=== PATIENT | female | born 1955 | race Caucasian/White ===

== ENCOUNTER 2018-11-07 22:29 | Inpatient (IN) | payer OTHER ==
[~2018-11-07] VITALS: Ht 167.6 cm; Wt 53.2 kg
[2018-11-07 23:00] LABS: Basophils # (auto) 0 uL; Eosinophils # (auto) 0.1 uL; Hemoglobin 12.9 g/dL (12.2-16.2); Monocytes # (auto) 0.5 uL; Neutrophils # (auto) 2.2 uL; Nucleated Red Blood Cells % 0.1 %; White Blood Cell 4.5 10^3/uL (4.4-10.8)
[2018-11-07 23:02] LABS: Basophils % (auto) 0.5 % (0.0-2.0); Eosinophils % (auto) 1.4 % (0.0-7.0); Hematocrit 38.8 % (36.0-46.0); Lymphocytes # (auto) 1.8 uL; Lymphocytes % (auto) 39.3 % (10.0-50.0); Mean Corpuscular Hemoglobin 34.8 pg (28.0-32.0); Mean Corpuscular Hgb Conc. 33.1 g/dL (32.0-36.0); Mean Corpuscular Volume 105.1 fL (80.0-100.0); Monocytes % (auto) 10.4 % (0.0-12.0); Neutrophils % (auto) 48.4 % (37.0-80.0); Platelet Count (auto) 332 10^3/uL (140-450); Red Blood Cells 3.69 10^6/uL (4.0-5.20); Red Cell Distribution Width 15.6 % (11.8-14.3)
[2018-11-07 23:26] LABS: Alanine Aminotransferase 29 U/L (13-56); Albumin 2.9 g/dL (3.4-5.0); Anion Gap 16 (5-15); Aspartate Aminotransferase 45 U/L (15-37); BUN/Creatinine Ratio 6.8; Blood Alcohol < 3.0 mg/dL (0-5); Blood Urea Nitrogen 7 mg/dL (7-18); Calcium 8.5 mg/dL (8.5-10.1); Carbon Dioxide 21 mmol/L (21-32); Chloride 101 mmol/L (98-107); GFR African American 70 mL/min; GFR Non-African American 58 mL/min; Glucose 108 mg/dL (74-106); Sodium 138 mmol/L (136-145)
[2018-11-07] MEDS ORDERED: LORazepam 2MG/ML-1ML VIAL ONE (23:30)
[2018-11-07] MEDS ORDERED: diphenhdrAMINE HCL 50 MG/1 ML VL ONE (23:30)
[2018-11-07] MEDS ORDERED: HALOPERIDOL LACTATE 5 MG/ML INJ VIAL ONE (23:30)
[2018-11-07 23:31] LABS: Alkaline Phosphatase 83 U/L (45-117); Bilirubin, Total 0.2 mg/dL (0.2-1.0); Total Protein 6.9 g/dL (6.4-8.2)
[2018-11-07 23:40] LABS: Urine Bacteria NONE SEEN /hpf (None Seen); Urine Blood Negative /uL (Negative); Urine Specific Gravity 1.001 (1.001-1.035); Urine WBC <1 /hpf (0 - 5)
[2018-11-07 23:40] LABS: Potassium 2.6 mmol/L (3.5-5.1)
[2018-11-07 23:55] LABS: Amphetamine Screen, Urine NEGATIVE (NEGATIVE); Barbiturate Scree,Urine NEGATIVE (NEGATIVE); Benzodiazephine Screen, Urine NEGATIVE (NEGATIVE); Cannabinoid Screen, Urine POSITIVE (NEGATIVE); Cocaine Screen, Urine NEGATIVE (NEGATIVE); Opiate Scree,Urine NEGATIVE (NEGATIVE); Phencyclidine Screen, Urine NEGATIVE (NEGATIVE)
[2018-11-08] MEDS ORDERED: SODIUM CHLORIDE 0.9% 1,000 ML IV ONE (00:45)
[2018-11-08] MEDS: POTASSIUM CHL 20MEQ/100ML 100 ML IV SCH ×2 (01:02→03:27)
[2018-11-08] MEDS ORDERED: LORazepam 2MG/ML-1ML VIAL IV ONE (01:15)
[2018-11-08] MEDS ORDERED: diphenhdrAMINE HCL 50 MG/1 ML VL IV ONE (01:15)
[2018-11-08] MEDS ORDERED: HALOPERIDOL LACTATE 5 MG/ML INJ VIAL IM ONE (01:15)
[2018-11-08] MEDS ORDERED: POTASSIUM CHL 20MEQ/100ML 100 ML IV ONE (07:15)
[2018-11-08] MEDS ORDERED: MORPHINE SULFATE 4 MG/ML SYR/VIAL IV PRN (08:30)
[2018-11-08] MEDS ORDERED: NITROGLYCERIN 0.4 MG SL TAB SL PRN (08:30)
[2018-11-08] MEDS ORDERED: ACETAMINOPHEN 500 MG TAB PO PRN (08:30)
[2018-11-08] MEDS ORDERED: HYDROcodone-ACET 5/325MG TAB PO PRN (08:30)
[2018-11-08 09:28] LABS: Magnesium 2.3 mg/dL (1.6-2.6); Phosphorus 4.3 mg/dL (2.5-4.90)
[2018-11-08] MEDS: PANTOPRAZOLE 40 MG/10 ML VIAL IV SCH (10:00)
[2018-11-08] MEDS: MULTIPLE VITAMIN 10 ML, MAGNESIUM SULF SDV 50% 8 MEQ in D5W/SOD CHL 0.45% 1,000 ML IV SCH ×2 (10:45→12:00)
[2018-11-08] MEDS: LEVETIRACETAM INJ 1,000 MG in D5W 5% 100 ML IV SCH ×2 (10:50→21:46)
[2018-11-08 12:18] LABS: Magnesium 2.2 mg/dL (1.6-2.6); Potassium 3.6 mmol/L (3.5-5.1)
--- NOTE | 2018-11-08 17:20 | NUR ---
OPENING PATIENT ON THE FLOOR , WILL F/U WITH ASSESSMENT.
[2018-11-08] MEDS ORDERED: CYCL1TAB18 PO (18:05)
[2018-11-08] MEDS ORDERED: FOLI1TAB6 PO (18:05)
[2018-11-08] MEDS ORDERED: BACL10TA PO (18:05)
[2018-11-08] MEDS ORDERED: ALBUPOW25 XX (18:05)
[2018-11-08] MEDS ORDERED: OMEP20TA PO (18:05)
[2018-11-08] MEDS ORDERED: QUET100T46 PO (18:05)
[2018-11-08] MEDS: LORazepam 2MG/ML-1ML VIAL IV PRN (18:06)
--- NOTE | 2018-11-08 19:25 | NUR ---
Opening Shift Note Received report from Massiel KAUFFMAN. Assumed care of patient, awake and alert to self and only. In moderate distress/SOB and low back pain. Instructed on POC and to call for assist PRN. Fall precaution measures in place, will continue to monitor for changes Q1hr and PRN.
[2018-11-08 20:00] VITALS: BP 149/74
--- NOTE | 2018-11-08 21:25 | NUR ---
IV removal IV on R forearm infiltrated. IV DC'd with clean sterile technique, catheter fully intact. Pressure dressing applied to site. Patient tolerated well.
--- NOTE | 2018-11-08 21:30 | NUR ---
IV insertion IV access obtained, via clean sterile technique by inserting 20 gauge catheter at L forearm after 1 attempt(s). IV secured properly. No trauma to site. Patient tolerated well.
[2018-11-08 22:00] VITALS: BP 149/74
--- NOTE | 2018-11-08 22:20 | NUR ---
Ceballos catheter dc'd Patient is confused, trying to pull out the Ceballos. Keep going out of bed stating "I need to pee." Reorient patient that she has a Ceballos in placed to help her urinate, still patient doesn't want it. Charge nurse Penny at bedside. Ceballos dc'd with clean technique following deflation of balloon. Patient tolerated well with no complaints of pain. Continue care.
[2018-11-08] MEDS ORDERED: TEMAZEPAM 15 MG CAP PO ONE (23:15)
[2018-11-09] VITALS (7 sets, daily range): BP systolic 103–150; BP diastolic 58–81
[2018-11-09] MEDS: chlordiazePOXIDE HCL 25 MG CAP PO PRN (00:15)
[2018-11-09] MEDS: LORazepam 2MG/ML-1ML VIAL IV PRN (01:34)
--- NOTE | 2018-11-09 01:43 | NUR ---
Patient pulled out the ID band and trying to pull out the IV. Patient also frequently getting out of bed and does not use the call light. Sitter placed for safety.
[2018-11-09] MEDS: MORPHINE SULFATE 4 MG/ML SYR/VIAL IV PRN ×2 (03:48→22:31)
[2018-11-09 05:55] LABS: Basophils # (auto) 0 uL; Basophils % (auto) 0.5 % (0.0-2.0); Eosinophils # (auto) 0.1 uL; Lymphocytes # (auto) 1.4 uL; Monocytes # (auto) 0.6 uL; Platelet Count (auto) 244 10^3/uL (140-450); White Blood Cell 5.7 10^3/uL (4.4-10.8)
[2018-11-09 05:58] LABS: Eosinophils % (auto) 1.8 % (0.0-7.0); Hematocrit 32.5 % (36.0-46.0); Lymphocytes % (auto) 24.8 % (10.0-50.0); Mean Corpuscular Hemoglobin 35.3 pg (28.0-32.0); Mean Corpuscular Hgb Conc. 33.9 g/dL (32.0-36.0); Mean Corpuscular Volume 104.2 fL (80.0-100.0); Monocytes % (auto) 11.3 % (0.0-12.0); Neutrophils # (auto) 3.5 uL; Neutrophils % (auto) 61.6 % (37.0-80.0); Red Blood Cells 3.12 10^6/uL (4.0-5.20); Red Cell Distribution Width 15.1 % (11.8-14.3)
[2018-11-09 06:12] LABS: Calcium 8.1 mg/dL (8.5-10.1); Potassium 3.1 mmol/L (3.5-5.1)
[2018-11-09 06:14] LABS: BUN/Creatinine Ratio 9.3
[2018-11-09] MEDS: ALBUTEROL SULF 2.5 MG/0.5ML(0.5%) NEB SOLN NEB PRN ×3 (06:17→21:51)
--- NOTE | 2018-11-09 07:15 | NUR ---
Opening Shift Note Report and assumed care of patient, awake and alert. in bed,No S/S of distress/SOB or pain. Instructed on POC and to call for assist PRN,sleeve setter safety stitch at bedside. will continue to monitor for changes Q1hr and PRN.
--- NOTE | 2018-11-09 09:00 | NUR ---
IV SITE LEFT ARM LEAKING SITE DISCONTINUED AND STARTED g20 TO LEFT WRIST
[2018-11-09] MEDS: PANTOPRAZOLE 40 MG/10 ML VIAL IV SCH (09:54)
[2018-11-09] MEDS: LEVETIRACETAM INJ 1,000 MG in D5W 5% 100 ML IV SCH ×2 (09:55→21:46)
[2018-11-09] MEDS: MULTIPLE VITAMIN 10 ML, MAGNESIUM SULF SDV 50% 8 MEQ in D5W/SOD CHL 0.45% 1,000 ML IV SCH (12:54)
--- NOTE | 2018-11-09 15:00 | NUR ---
RESTING,NO DISTRESS NO DISCOMFORT,MOTOR AND GENERATOR ASSEMBLER REMAIN AT BEDSIDE
--- NOTE | 2018-11-09 19:03 | NUR ---
REPORT GIVEN TO YORDY URRUTIA SHIFT RN,STATUS UNCHANGED NO DISTRESS
--- NOTE | 2018-11-09 19:15 | NUR ---
Opening Shift Note Received report from Tatiana KAUFFMAN. Assumed care of patient, awake and alert. No S/S of distress/SOB or pain. Instructed on POC and to call for assist PRN. Fall precaution measures in place, will continue to monitor for changes Q1hr and PRN.
--- NOTE | 2018-11-09 22:45 | NUR ---
Dr. Carmen Mistry at bedside.
[2018-11-09] MEDS ORDERED: POTASSIUM CHL 20 Meq TABLET PO ONE (23:00)
[2018-11-09] MEDS ORDERED: POTASSIUM CHLORIDE 20 MEQ, LIDOCAINE 1% (LOCAL ANESTH.) 2 ML in SODIUM CHL 0.9% 100 ML IV ONE (23:00)
[2018-11-10] MEDS: LORazepam 2MG/ML-1ML VIAL IV PRN (02:36)
[2018-11-10 04:27] VITALS: BP 138/72
[2018-11-10] MEDS: MORPHINE SULFATE 4 MG/ML SYR/VIAL IV PRN (06:19)
--- NOTE | 2018-11-10 07:00 | NUR ---
Called Pharmacy re: order of Potassium IV. Pharmacist informed RN that they will have to mix it and then send after, will endorse to dayshift RN.
[2018-11-10 07:07] LABS: Basophils # (auto) 0 uL; Basophils % (auto) 0.6 % (0.0-2.0); Eosinophils # (auto) 0.1 uL; Hematocrit 34.6 % (36.0-46.0); Hemoglobin 11.7 g/dL (12.2-16.2); Lymphocytes # (auto) 1.4 uL; Mean Corpuscular Hemoglobin 35.3 pg (28.0-32.0); Monocytes # (auto) 0.6 uL; Red Blood Cells 3.32 10^6/uL (4.0-5.20)
[2018-11-10 07:11] LABS: Eosinophils % (auto) 2.3 % (0.0-7.0); Lymphocytes % (auto) 25.1 % (10.0-50.0); Mean Corpuscular Hgb Conc. 33.9 g/dL (32.0-36.0); Mean Corpuscular Volume 104.1 fL (80.0-100.0); Monocytes % (auto) 11.4 % (0.0-12.0); Neutrophils # (auto) 3.3 uL; Neutrophils % (auto) 60.6 % (37.0-80.0); Platelet Count (auto) 282 10^3/uL (140-450); Red Cell Distribution Width 15.1 % (11.8-14.3); White Blood Cell 5.4 10^3/uL (4.4-10.8)
[2018-11-10] MEDS ORDERED: POTASSIUM CHLORIDE 20 MEQ, LIDOCAINE 1% (LOCAL ANESTH.) 2 ML in SODIUM CHL 0.9% 100 ML IV ONE (07:15)
[2018-11-10 07:24] LABS: Calcium 8.4 mg/dL (8.5-10.1)
--- NOTE | 2018-11-10 07:45 | NUR ---
Patient is stable but anxious to go home, pain level at this time is 6/10. Endorsed care to Blaise KAUFFMAN.
[2018-11-10 08:00] VITALS: BP 158/82
--- NOTE | 2018-11-10 08:07 | NUR ---
IV PATIENT PURPOSEFULLY PULLED OUT IV, STATES SHE DID NOT WANT THE IV AND SHRUGGED HER SHOULDERS, I EXPLAINED THAT SHE COULD NO LONGER RECEIVE HER IV MEDICATION BECAUSE SHE TOOK OUT HER IV, SHE STATES SHE DOESN'T CARE AND THAT SHE IS BORED, SHE TELLS RN THAT "YOU CAN JUST SHOOT MY MEDICATION IN MY ARM", EXPLAINED TO PATIENT THAT MEDICATION ADMINISTRATION DOES NOT WORK LIKE THAT, PT STATES AGAIN THAT SHE DOESN'T CARE
[2018-11-10 09:00] VITALS: BP 158/82
[2018-11-10] MEDS: chlordiazePOXIDE HCL 25 MG CAP PO PRN (11:21)
[2018-11-10 13:00] VITALS: BP 170/85
--- NOTE | 2018-11-10 15:00 | NUR ---
Respiratory note: PT SEEN FOR PRN MEDNEB ASSESSMENT NO TX INDICATED AT THIS TIME. SPO2 98% ON 3L NC HR 83 RR 16 B/S CLEAR IN UPPER LOBES DIMINISHED IN BASES. PT AWARE TO CALL RN AND HAVE THEM PAGE RT IF THEY BECOME SOB.
[2018-11-10 17:00] VITALS: BP 166/88
--- NOTE | 2018-11-10 19:00 | NUR ---
D/C PATIENT REFUSED TO WAIT TO SIGN DISCHARGE PAPERWORK, CHARGE NURSE NOTIFIED, PATIENT DID NOT HAVE AN IV IN PLACE AND WAS A MEDSURG PATIENT, SHE LEFT ACCOMPANIED BY HER SON JOYCE. JOYCE WAS CALLED HIM THAT PAPERWORK HAD NOT BEEN SIGNED AND HE STATES HE WILL RETURN TO SCHOOL LEADER THE PAPERWORK.
== END 2018-11-10 19:00 | disposition home or self-care (01) | DRG 917 ==
LOC: EDBD 22:29 → ER 22:29 → OVERFLOW 11-08 08:34 → EAST 11-08 17:28
PROVIDERS: ADMIT Nurse Practitioner Acute Care; ATTEND Internal Medicine
DX: T40.7X1A Poisoning by cannabis (derivatives), accidental (unintentional), initial encounter (principal); G92 Toxic encephalopathy; G93.89 Other specified disorders of brain; E87.6 Hypokalemia; F10.10 Alcohol abuse, uncomplicated; F14.10 Cocaine abuse, uncomplicated; F12.10 Cannabis abuse, uncomplicated; Y90.0 Blood alcohol level of less than 20 mg/100 ml; T51.91XA Toxic effect of unspecified alcohol, accidental (unintentional), initial encounter; G40.909 Epilepsy, unspecified, not intractable, without status epilepticus; I69.392 Facial weakness following cerebral infarction; Z88.8 Allergy status to other drugs, medicaments and biological substances; Y92.89 Other specified places as the place of occurrence of the external cause
CPT/HCPCS: 36415; 70450; 71045; 80048; 80053; 80061; 80307; 80320; 81001; 82550; 83735; 84100; 84132; 84443; 84484; 85025; 94640; 95819; 96365; 96366; 96367; 96375; 99291; A6257; C9113; G0378; J2001; J3480; J7060